=== PATIENT | female | born 1995 | race Caucasian/White ===

== ENCOUNTER 2020-03-27 12:08 | Emergency (ER) | payer BC ==
[2020-03-27] MEDS ORDERED: Sodium Chloride 0.9% 10 ML Syringe FLUSH PRN (12:36)
[2020-03-27] MEDS ORDERED: Iopamidol 612 MG/ML 100 ML Bottle IVPUSH ONE (12:51)
[2020-03-27 13:08] LABS: ANION GAP 13.8 mEq/L (7-13); CHLORIDE,CL 103 mmol/L (98-107); SODIUM,NA 142 mmol/L (136-145)
[2020-03-27] MEDS ORDERED: Ketorolac 30 MG/ML SDV IVPUSH ONE (13:16)
--- NOTE | 2020-03-27 14:23 | CT ---
PROCEDURE INFORMATION: Exam: CT Abdomen And Pelvis With Contrast Exam date and time: 03/27/2020 12:59 PM Age: 24 years old Clinical indication: Abdominal pain; Localized; Right lower quadrant (rlq); Additional info: Rlq pain TECHNIQUE: Imaging protocol: Computed tomography of the abdomen and pelvis with intravenous contrast. Radiation optimization: All CT scans at this facility use at least one of these dose optimization techniques: automated exposure control; mA and/or kV adjustment per patient size (includes targeted exams where dose is matched to clinical indication); or iterative reconstruction. Contrast material: ISOVUE 300; Contrast volume: 75 ml; Contrast route: INTRAVENOUS (IV); COMPARISON: No relevant prior studies available. FINDINGS: Lungs: Unremarkable.No mass or nodule. Liver: Normal. No mass. Gallbladder and bile ducts: Normal. No calcified stones. No ductal dilation. Pancreas: Normal. No ductal dilation. Spleen: Normal. No splenomegaly. Adrenal glands: Normal. No mass. Kidneys and ureters: Normal. No hydronephrosis. Stomach and bowel: Unremarkable. No obstruction. No mucosal thickening. Appendix: No definite evidence of acute appendicitis. Intraperitoneal space: Unremarkable. No free air. Free fluid observed in the dependent pelvis extends to the right paracentral region. Suggestion of 4.3 x 4.0 cm solid mass in the left adnexa. Vasculature: Unremarkable. No abdominal aortic aneurysm. Lymph nodes: Unremarkable. No enlarged lymph nodes. Urinary bladder: Unremarkable as visualized. Reproductive: Unremarkable as visualized. Bones/joints: Unremarkable. No acute fracture. Soft tissues: Unremarkable. IMPRESSION: 1. Possible solid left adnexal mass with free intrapelvic fluid. Sonography recommended for further evaluation. 2. Otherwise unremarkable study.
--- NOTE | 2020-03-27 15:31 | US ---
PROCEDURE INFORMATION: Exam: US Nonobstetric Pelvis; Complete Exam date and time: 03/27/2020 2:52 PM Age: 24 years old Clinical indication: Pelvic pain; Additional info: Solid left adnexal mass, abdominal/pelvic pain TECHNIQUE: Imaging protocol: Transabdominal pelvic nonobstetric ultrasound. Complete exam. Real time ultrasound with image documentation. COMPARISON: CT Abdomen Pelvis w Cont 03/27/2020 12:59 PM FINDINGS: Uterus/cervix: Uterus is normal. Endometrial stripe measures 5.7 mm. Uterus measures 7.9 x 3.8 x 3.6 cm. Right adnexa: Ovary is normal. No mass. Normal blood flow. Small follicular cysts present. Left adnexa: Ovary is normal. No mass. Normal blood flow. Small follicular cyst present. Solid mass in the left adnexa measuring 5.0 x 3.9 x 3.6 cm. Right kidney: Unremarkable Intraperitoneal space: No intraperitoneal fluid. Urinary bladder: Normal. IMPRESSION: 1. Pelvic sonography confirms the presence of a solid mass in the left adnexa, measurements given above. Etiology uncertain. 2. Small bilateral follicular cysts.
--- NOTE | 2020-03-27 15:47 | EDM.PDOC ---
"Scribed by Petty Perkins 03/27/20 3170 for Emmett Jernigan MD ED HPI GENERAL MEDICAL PROBLEM - General Chief Complaint: Abdominal Pain Stated Complaint: STOMACHE PAIN Time Seen by Provider: 03/27/20 12:17 Source of Information: Reports: Patient, RN, RN Notes Reviewed History Limitations: Reports: No Limitations - History of Present Illness INITIAL COMMENTS - FREE TEXT/NARRATIVE: Patient presents to ED by POV with right upper quadrant and left upper quadrant 3 times this week. Today it is in the right lower quadrant. It was of random onset. She has tried heat, Tums and rest. The pain is sharp and stabbing. She has nausea. No change in bowel habits. Her LMP was 2 weeks. It is always crampy/this is different. Patient is sexually active. She denies any urinary symptoms. No vaginal discharge, bleeding or pelvic pain. Onset: Gradual Duration: Intermittent Location: Reports: Abdomen Quality: Reports: Ache, Stabbing Severity: Moderate Improves with: Reports: None Worsens with: Reports: None Associated Symptoms: Reports: No Other Symptoms - Related Data Allergies Allergy/AdvReac Type Severity Reaction Status Date / Time No Known Allergies Allergy Verified 03/27/20 12:36 Home Meds: Home Meds Levonorgestrel/Ethin.estradiol [Falmina-28 Tablet] 1 tab PO DAILY 03/27/20 [History] Past Medical History - Past Surgical History HEENT Surgical History: Reports: Tonsillectomy Social & Family History - Sexual History Sexual History: Reports: Sexually Active, Single Partner ED ROS GENERAL - Review of Systems Review Of Systems: Comprehensive ROS is negative, except as noted in HPI. ED EXAM, GI/ABD - Physical Exam Exam: See Below Exam Limited By: No Limitations General Appearance: Alert, WD/WN, No Apparent Distress Eyes: Bilateral: Normal Appearance Nose: Normal Inspection, Normal Mucosa, No Blood Throat/Mouth: Normal Inspection, Normal Lips, Normal Teeth, Normal Gums, Normal Oropharynx, Normal Voice, No Airway Compromise Head: Atraumatic, Normocephalic Neck: Normal Inspection, Supple, Non-Tender, Full Range of Motion Respiratory/Chest: No Respiratory Distress, Lungs Clear, Normal Breath Sounds, No Accessory Muscle Use, Chest Non-Tender Cardiovascular: Normal Peripheral Pulses, Regular Rate, Rhythm, No Edema GI/Abdominal Exam: Guarding (right lower quadrant), Tender (right lower, right upper worse in the right lower quadrant). No: Distended, Rigid, Rebound (Female) Exam: Deferred Rectal (Female) Exam: Deferred Back Exam: No: CVA Tenderness (L), CVA Tenderness (R) Extremities: Normal Inspection Neurological: Alert, Oriented Psychiatric: Normal Affect Skin Exam: Warm, Dry, No Rash Lymphatic: No Adenopathy Course - Vital Signs Last Recorded V/S: Last Vital Signs Temp 98.4 F 03/27/20 12:33 Pulse 66 03/27/20 12:33 Resp 16 03/27/20 12:33 BP 120/77 03/27/20 12:33 Pulse Ox 100 03/27/20 12:33 - Orders/Labs/Meds Orders: Active Orders 24 hr Category Date Time Status Peripheral IV Care [RC] . DIRECTED Care 03/27/20 12:37 Active CULTURE URINE [RM] Stat Lab 03/27/20 12:18 Received Sodium Chloride 0.9% [Saline Flush] Med 03/27/20 12:36 Active 10 ml FLUSH ASDIRECTED PRN Peripheral IV Insertion Adult [OM.PC] Routine Oth 03/27/20 12:36 Ordered Medication Orders Sodium Chloride (Saline Flush) 10 ml FLUSH ASDIRECTED PRN PRN Reason: Keep Vein Open Last Admin: 03/27/20 12:46 Dose: 10 ml Documented by: GIGI Labs: Laboratory Tests 03/27/20 03/27/20 03/27/20 Range/Units 12:18 12:18 12:45 WBC 9.4 (5.0-10.0) 10^3/uL RBC 4.47 (4.2-5.4) 10^6/uL Hgb 13.5 (12.0-16.0) g/dL Hct 39.6 (37.0-47.0) % MCV 88.6 (80-100) fL MCH 30.2 (27.0-34.0) pg MCHC 34.1 (33.0-35.0) g/dL Plt Count 282 (150-450) 10^3/uL Neut % (Auto) 70.5 (42.2-75.2) % Lymph % (Auto) 20.4 L (20.5-50.1) % Blount % (Auto) 6.8 (2-8) % Eos % (Auto) 1.9 (1.0-3.0) % Baso % (Auto) 0.4 (0.0-1.0) % Sodium (136-145) mmol/L Potassium (3.5-5.1) mmol/L Chloride (98-107) mmol/L Carbon Dioxide (21-32) mmol/L Anion Gap (7-13) mEq/L BUN (7-18) mg/dL Creatinine (0.55-1.02) mg/dL Est Cr Clr Drug Dosing mL/min Estimated GFR (MDRD) BUN/Creatinine Ratio (No establ ref range) Glucose (74-99) mg/dL Calcium (8.5-10.1) mg/dL Total Bilirubin (0.2-1.0) mg/dL AST (15-37) U/L ALT (14-59) U/L Alkaline Phosphatase (46-116) U/L Total Protein (6.4-8.2) g/dL Albumin (3.4-5.0) g/dL Globulin Albumin/Globulin Ratio Urine Color Light yellow (YELLOW) Urine Appearance Slightly cloudy (CLEAR) Urine pH 7.0 (5.0-9.0) Ur Specific Theodore 1.015 (1.005-1.030) Urine Protein Negative (NEGATIVE) Urine Glucose (UA) Negative (NEGATIVE) Urine Ketones Negative (NEGATIVE) Urine Occult Blood Trace-intact H (NEGATIVE) Urine Nitrite Negative (NEGATIVE) Urine Bilirubin Negative (NEGATIVE) Urine Urobilinogen 0.2 (0.2-1.0) mg/dL Ur Leukocyte Esterase Moderate H (NEGATIVE) Urine RBC 5-10 H /HPF Urine WBC 10-20 H (0-5/HPF) /HPF Ur Epithelial Cells Moderate H (NOT SEEN) /HPF Amorphous Sediment Few (NOT SEEN) /HPF Urine Bacteria Few (0-FEW/HPF) /HPF Urine Mucus Few H (NOT SEEN) /LPF Urine HCG, Qual Negative 03/27/20 Range/Units 12:45 WBC (5.0-10.0) 10^3/uL RBC (4.2-5.4) 10^6/uL Hgb (12.0-16.0) g/dL Hct (37.0-47.0) % MCV (80-100) fL MCH (27.0-34.0) pg MCHC (33.0-35.0) g/dL Plt Count (150-450) 10^3/uL Neut % (Auto) (42.2-75.2) % Lymph % (Auto) (20.5-50.1) % Blount % (Auto) (2-8) % Eos % (Auto) (1.0-3.0) % Baso % (Auto) (0.0-1.0) % Sodium 142 (136-145) mmol/L Potassium 3.8 (3.5-5.1) mmol/L Chloride 103 (98-107) mmol/L Carbon Dioxide 29 (21-32) mmol/L Anion Gap 13.8 H (7-13) mEq/L BUN 9 (7-18) mg/dL Creatinine 0.80 (0.55-1.02) mg/dL Est Cr Clr Drug Dosing 99.76 mL/min Estimated GFR (MDRD) > 60 BUN/Creatinine Ratio 11.2 (No establ ref range) Glucose 85 (74-99) mg/dL Calcium 9.0 (8.5-10.1) mg/dL Total Bilirubin 0.5 (0.2-1.0) mg/dL AST 16 (15-37) U/L ALT 16 (14-59) U/L Alkaline Phosphatase 48 (46-116) U/L Total Protein 7.3 (6.4-8.2) g/dL Albumin 4.0 (3.4-5.0) g/dL Globulin 3.3 Albumin/Globulin Ratio 1.2 Urine Color (YELLOW) Urine Appearance (CLEAR) Urine pH (5.0-9.0) Ur Specific Theodore (1.005-1.030) Urine Protein (NEGATIVE) Urine Glucose (UA) (NEGATIVE) Urine Ketones (NEGATIVE) Urine Occult Blood (NEGATIVE) Urine Nitrite (NEGATIVE) Urine Bilirubin (NEGATIVE) Urine Urobilinogen (0.2-1.0) mg/dL Ur Leukocyte Esterase (NEGATIVE) Urine RBC /HPF Urine WBC (0-5/HPF) /HPF Ur Epithelial Cells (NOT SEEN) /HPF Amorphous Sediment (NOT SEEN) /HPF Urine Bacteria (0-FEW/HPF) /HPF Urine Mucus (NOT SEEN) /LPF Urine HCG, Qual Meds: Medications Generic Name Dose Route Start Last Admin Trade Name Arianna PRN Reason Stop Dose Admin Sodium Chloride 10 ml 03/27/20 12:36 03/27/20 12:46 Saline Flush FLUSH 10 ml ASDIRECTED PRN Administration Keep Vein Open Discontinued Medications Generic Name Dose Route Start Last Admin Trade Name Arianna PRN Reason Stop Dose Admin Iopamidol 100 ml 03/27/20 12:51 03/27/20 13:14 Isovue-300 (61%) IVPUSH 03/27/20 12:52 75 ml ONETIME ONE Administration Ketorolac Tromethamine 30 mg 03/27/20 13:16 03/27/20 13:20 Toradol IVPUSH 03/27/20 13:17 30 mg ONETIME ONE Administration - Radiology Interpretation Free Text/Narrative:: [facility] Final Radiology Report Call: [phone] assistance Online chat: [email or web address] Name: HARPREET GARNICA Age: 24Years F Date: 03/27/2020 SSN: -- : 1995 Study: CT ABDOMEN PELVIS W CONT Requesting Physician: EMMETT JERNIGAN Images: [id number] Addl Studies: Provided Clinical History: RLQ pain Contrast: With Contrast Medium: Isovue 300 Contrast Amount: 75 mL Contrast Method: Intravenous (IV) Page 1 of 2 PROCEDURE INFORMATION: Exam: CT Abdomen And Pelvis With Contrast Exam date and time: 03/27/2020 12:59 PM Age: 24 years old Clinical indication: Abdominal pain; Localized; Right lower quadrant (rlq); Additional info: Rlq pain TECHNIQUE: Imaging protocol: Computed tomography of the abdomen and pelvis with intravenous contrast. Radiation optimization: All CT scans at this facility use at least one of these dose optimization techniques: automated exposure control; mA and/or kV adjustment per patient size (includes targeted exams where dose is matched to clinical indication); or iterative reconstruction. Contrast material: ISOVUE 300; Contrast volume: 75 ml; Contrast route: INTRAVENOUS (IV); COMPARISON: No relevant prior studies available. FINDINGS: Lungs: Unremarkable.No mass or nodule. Liver: Normal. No mass. Gallbladder and bile ducts: Normal. No calcified stones. No ductal dilation. Pancreas: Normal. No ductal dilation. Spleen: Normal. No splenomegaly. Adrenal glands: Normal. No mass. Kidneys and ureters: Normal. No hydronephrosis. Stomach and bowel: Unremarkable. No obstruction. No mucosal thickening. Appendix: No definite evidence of acute appendicitis. Intraperitoneal space: Unremarkable. No free air. Free fluid observed in the dependent pelvis extends to the right paracentral region. Suggestion of 4.3 x 4.0 cm solid mass in the left adnexa. HARPREET GARNICA | Final Radiology Report CONFIDENTIALITY STATEMENT This report is intended only for use by the referring physician, and only in accordance with law. If you received this in error, call [phone]. Page 2 of 2 Vasculature: Unremarkable. No abdominal aortic aneurysm. Lymph nodes: Unremarkable. No enlarged lymph nodes. Urinary bladder: Unremarkable as visualized. Reproductive: Unremarkable as visualized. Bones/joints: Unremarkable. No acute fracture. Soft tissues: Unremarkable. IMPRESSION: 1. Possible solid left adnexal mass with free intrapelvic fluid. Sonography recommended for further evaluation. 2. Otherwise unremarkable study. Thank you for allowing us to participate in the care of your patient. Dictated and Authenticated by: Abundio Oglesby MD 03/27/2020 2:22 PM Central Time ([place] & [place]) [facility] Final Radiology Report Call: [phone] assistance Online chat: [email or web address] Name: HARPREET GARNICA Age: 24Years F Date: 03/27/2020 SSN: -- : 1995 Study: US PELVIS NON OB COMP Requesting Physician: EMMETT JERNIGAN Images: 45 Addl Studies: Provided Clinical History: solid left adnexal mass, abdominal/pelvic pain Contrast: Without Contrast Medium: Contrast Amount: Contrast Method: Page 1 of 2 PROCEDURE INFORMATION: Exam: US Nonobstetric Pelvis; Complete Exam date and time: 03/27/2020 2:52 PM Age: 24 years old Clinical indication: Pelvic pain; Additional info: Solid left adnexal mass, abdominal/pelvic pain TECHNIQUE: Imaging protocol: Transabdominal pelvic nonobstetric ultrasound. Complete exam. Real time ultrasound with image documentation. COMPARISON: CT Abdomen Pelvis w Cont 03/27/2020 12:59 PM FINDINGS: Uterus/cervix: Uterus is normal. Endometrial stripe measures 5.7 mm. Uterus measures 7.9 x 3.8 x 3.6 cm. Right adnexa: Ovary is normal. No mass. Normal blood flow. Small follicular cysts present. Left adnexa: Ovary is normal. No mass. Normal blood flow. Small follicular cyst present. Solid mass in the left adnexa measuring 5.0 x 3.9 x 3.6 cm. Right kidney: Unremarkable Intraperitoneal space: No intraperitoneal fluid. Urinary bladder: Normal. IMPRESSION: 1. Pelvic sonography confirms the presence of a solid mass in the left adnexa, measurements given above. Etiology uncertain. 2. Small bilateral follicular cysts. Thank you for allowing us to participate in the care of your patient. HARPREET GARNICA | Final Radiology Report CONFIDENTIALITY STATEMENT This report is intended only for use by the referring physician, and only in accordance with law. If you received this in error, call [phone]. Page 2 of 2 Dictated and Authenticated by: Abundio Oglesby MD 03/27/2020 3:30 PM Central Time ([place] & [place]) - Re-Assessments/Exams Free Text/Narrative Re-Assessment/Exam: 03/27/20 15:41 I saw and evaluated the patient. Discussed with resident and agree with residents findings and plan as documented in the residents note. The resident does not have [employer] access. Departure - Departure Time of Disposition: 15:45 Disposition: Home, Self-Care 01 Condition: Good Clinical Impression: Left ovarian cyst, Ovarian mass, left - Discharge Information *PRESCRIPTION DRUG MONITORING PROGRAM REVIEWED*: Not Applicable *COPY OF PRESCRIPTION DRUG MONITORING REPORT IN PATIENT YENY: Not Applicable Instructions: Ovarian Cyst, [id number] Forms: ED Department Discharge Additional Instructions: RX: Naprosyn 500mg. Tylenol as needed. Follow up with primary care early next week. Sepsis Event Note (ED) - Focused Exam Vital Signs: Vital Signs Temp Pulse Resp BP Pulse Ox 03/27/20 12:33 98.4 F 66 16 120/77 100 - My Orders Last 24 Hours: My Active Orders 03/27/20 12:18 CULTURE URINE [RM] Stat 03/27/20 12:36 Sodium Chloride 0.9% [Saline Flush] 10 ml FLUSH ASDIRECTED PRN Peripheral IV Insertion Adult [OM.PC] Routine 03/27/20 12:37 Peripheral IV Care [RC] . DIRECTED - Assessment/Plan Last 24 Hours: My Active Orders 03/27/20 12:18 CULTURE URINE [RM] Stat 03/27/20 12:36 Sodium Chloride 0.9% [Saline Flush] 10 ml FLUSH ASDIRECTED PRN Peripheral IV Insertion Adult [OM.PC] Routine 03/27/20 12:37 Peripheral IV Care [RC] . DIRECTED I have read and agree with the documentation that has been completed regarding this visit. By signing this record, I attest that the documentation was completed in my physical presence and is an accurate record of the encounter."
== END 2020-03-27 15:52 | disposition home or self-care (01) ==
LOC: DL.ED 12:08
DX: N83.202 Unspecified ovarian cyst, left side (principal)
CPT/HCPCS: 36415; 74177; 76856; 80053; 81001; 81025; 85025; 87086; 96374; 99284; J1885; Q9967

== ENCOUNTER 2020-05-03 10:08 | Emergency (ER) | payer BC ==
--- NOTE | 2020-05-03 10:29 | EDM.PDOC ---
ED HPI GENERAL MEDICAL PROBLEM - General Chief Complaint: [employer] Problem Stated Complaint: CYST ON OVARY STOMACH PAIN Time Seen by Provider: 05/03/20 10:27 Source of Information: Reports: Patient, Old Records, RN, RN Notes Reviewed History Limitations: Reports: No Limitations - History of Present Illness INITIAL COMMENTS - FREE TEXT/NARRATIVE: Pt presents to ER by POV with c/o lower abdominal pain for the past hour. Initially she thought she needed to have a BM, but only voided. While on the toilet the pain became so severe that she became diaphoretic and almost passed out. Pt rates the pain 8-10. She states that she just got over her period yesterday, which was on time and otherwise normal. She did have an [employer] follow up in [place] in March, and had tumor marker and CT scan, then was told that she has a large ovarian cyst, but it is not cancerous. She was told if cyst acting up with pain to go to ER due to risk of torsion. Onset: Today Duration: Constant Location: Reports: Abdomen, Pelvis Quality: Reports: Ache, Same as Previous Episode Severity: Severe Improves with: Reports: None Worsens with: Reports: None Associated Symptoms: Reports: No Other Symptoms Middle Abdomen Pain Score (Numeric/FACES): 8 - Related Data Allergies Allergy/AdvReac Type Severity Reaction Status Date / Time No Known Allergies Allergy Verified 05/03/20 10:27 Home Meds: Home Meds Levonorgestrel/Ethin.estradiol [Falmina-28 Tablet] 1 tab PO DAILY 03/27/20 [History] Past Medical History - Past Health History Medical/Surgical History: Denies Medical/Surgical History [employer] History: Reports: Other (See Below) (Ovarian cyst) Social & Family History - Family History Family Medical History: No Pertinent Family History - Living Situation & Occupation Living situation: Reports: , with Family Occupation: Employed ED ROS GENERAL - Review of Systems Review Of Systems: Comprehensive ROS is negative, except as noted in HPI. ED EXAM, RENAL/ - Physical Exam Exam: See Below Exam Limited By: No Limitations General Appearance: Alert, Anxious, Mild Distress (Due to pain) Nose: Normal Inspection Throat/Mouth: Normal Voice, No Airway Compromise Head: Atraumatic, Normocephalic Neck: Normal Inspection Respiratory/Chest: No Respiratory Distress, Lungs Clear, Normal Breath Sounds, No Accessory Muscle Use, Chest Non-Tender Cardiovascular: Regular Rate, Rhythm GI/Abdominal: Normal Bowel Sounds, Soft, No Distention, Guarding, Tender (Generalized lower abdominal tenderness, acutely tender at LLQ). No: Rigid, Rebound (Female) Exam: Deferred Rectal (Female) Exam: Deferred Back Exam: Normal Inspection, Full Range of Motion. No: CVA Tenderness (L), CVA Tenderness (R) Extremities: Normal Inspection Neurological: Alert, Oriented, No Motor/Sensory Deficits Psychiatric: Anxious Skin Exam: Warm, Dry, Intact, Normal Color, No Rash Course - Vital Signs Last Recorded V/S: Last Vital Signs Temp 97.3 F 05/03/20 10:18 Pulse 60 05/03/20 10:18 Resp 16 05/03/20 10:18 BP 116/58 L 05/03/20 10:18 Pulse Ox 100 05/03/20 10:18 - Orders/Labs/Meds Orders: Active Orders 24 hr Category Date Time Status Peripheral IV Care [RC] . DIRECTED Care 05/03/20 10:32 Active Pelvis Non OB Ltd [US] Stat Exams 05/03/20 10:47 Taken Sodium Chloride 0.9% [Saline Flush] Med 05/03/20 10:32 Active 10 ml FLUSH ASDIRECTED PRN Peripheral IV Insertion Adult [OM.PC] Stat Oth 05/03/20 10:31 Ordered Medication Orders Sodium Chloride (Saline Flush) 10 ml FLUSH ASDIRECTED PRN PRN Reason: Keep Vein Open Last Admin: 05/03/20 10:58 Dose: 10 ml Documented by: [id number] Labs: Laboratory Tests 05/03/20 05/03/20 Range/Units 10:25 10:25 WBC 8.0 (5.0-10.0) 10^3/uL RBC 4.54 (4.2-5.4) 10^6/uL Hgb 13.3 (12.0-16.0) g/dL Hct 39.9 (37.0-47.0) % MCV 87.9 (80-100) fL MCH 29.3 (27.0-34.0) pg MCHC 33.3 (33.0-35.0) g/dL Plt Count 271 (150-450) 10^3/uL Neut % (Auto) 60.0 (42.2-75.2) % Lymph % (Auto) 30.3 (20.5-50.1) % [place] % (Auto) 7.3 (2-8) % Eos % (Auto) 1.9 (1.0-3.0) % Baso % (Auto) 0.5 (0.0-1.0) % HCG, Qual Negative Meds: Medications Generic Name Dose Route Start Last Admin Trade Name Freq PRN Reason Stop Dose Admin Sodium Chloride 10 ml 05/03/20 10:32 05/03/20 10:58 Saline Flush FLUSH 10 ml ASDIRECTED PRN Administration Keep Vein Open Discontinued Medications Generic Name Dose Route Start Last Admin Trade Name Freq PRN Reason Stop Dose Admin Hydromorphone HCl 1 mg 05/03/20 10:33 05/03/20 10:46 Dilaudid IVPUSH 05/03/20 10:34 1 mg ONETIME ONE Administration Sodium Chloride 1,000 mls @ 999 mls/hr 05/03/20 10:32 05/03/20 10:40 Normal Saline IV 05/03/20 11:32 999 mls/hr .BOLUS ONE Administration Ketorolac Tromethamine 30 mg 05/03/20 10:32 05/03/20 10:43 Toradol IVPUSH 05/03/20 10:33 30 mg ONETIME ONE Administration Ondansetron HCl 4 mg 05/03/20 10:32 05/03/20 10:41 Zofran IV 05/03/20 10:33 4 mg ONETIME ONE Administration - Radiology Interpretation Free Text/Narrative:: [facility] Final Radiology Report Call: [phone] assistance Online chat: [email or web address] Name: HARPREET GARNICA Age: 24Years F Date: 05/03/2020 SSN: -- : [id number] Study: US PELVIS NON OB LTD Requesting Physician: EMMETT JOHN Images: 75 Addl Studies: Provided Clinical History: Known large L ovarian cyst w/severe acute pain Contrast: Without Contrast Medium: Contrast Amount: Contrast Method: CONFIDENTIALITY STATEMENT This report is intended only for use by the referring physician, and only in accordance with law. If you received this in error, call [phone]. Page 1 of 1 PROCEDURE INFORMATION: Exam: US Pelvis Limited, Transabdominal Exam date and time: 05/03/2020 11:17 AM Age: 24 years old Clinical indication: Pain and condition or disease; Ovarian conditions; Type of cyst not specified; Pelvic pain; Additional info: Known large L ovarian cyst w/severe acute pain TECHNIQUE: Imaging protocol: Real-time transabdominal pelvic ultrasound with image documentation. Limited exam. COMPARISON: US Pelvis Non OB Comp 03/27/2020 2:52 PM FINDINGS: The uterus is normal in size measuring 7.24 x 5.98 x 6.04 cm. No discrete right adnexal mass identified. The right ovary is normal in size and echotexture. The left ovary is enlarged measuring 4.95 x 3.8 x 4.90 cm. No discrete ovarian mass or cyst identified. Fluid identified in the cul-de-sac. IMPRESSION: 1. Stable enlargement of the left adnexa. Solid mass in the left ovary is not excluded. 2. Free fluid identified in the cul-de-sac. Thank you for allowing us to participate in the care of your patient. Dictated and Authenticated by: Abundio Oglesby MD 05/03/2020 12:13 PM Central Time ([place] & [place]) Departure - Departure Time of Disposition: 11:52 Disposition: Home, Self-Care 01 Condition: Good Clinical Impression: Free fluid in pelvis, Left ovarian enlargement - Discharge Information *PRESCRIPTION DRUG MONITORING PROGRAM REVIEWED*: Not Applicable *COPY OF PRESCRIPTION DRUG MONITORING REPORT IN PATIENT YENY: Not Applicable Instructions: Ovarian Cyst, Pelvic Pain, Female Forms: ED Department Discharge Additional Instructions: Activity as tolerated. Over the counter Ibuprofen 200mg: Take 4 tablets (800mg) by mouth every 8 hours. No more than 2400mg per day. Take with food. Follow up with your [employer] Services [employer] doctor if any further problems. Sepsis Event Note (ED) - Evaluation Sepsis Screening Result: No Definite Risk - Focused Exam Vital Signs: Vital Signs Temp Pulse Resp BP Pulse Ox 05/03/20 10:18 97.3 F 60 16 116/58 L 100 - My Orders Last 24 Hours: My Active Orders 05/03/20 10:31 Peripheral IV Insertion Adult [OM.PC] Stat 05/03/20 10:32 Peripheral IV Care [RC] . DIRECTED Sodium Chloride 0.9% [Saline Flush] 10 ml FLUSH ASDIRECTED PRN 05/03/20 10:47 Pelvis Non OB Ltd [US] Stat - Assessment/Plan Last 24 Hours: My Active Orders 05/03/20 10:31 Peripheral IV Insertion Adult [OM.PC] Stat 05/03/20 10:32 Peripheral IV Care [RC] . DIRECTED Sodium Chloride 0.9% [Saline Flush] 10 ml FLUSH ASDIRECTED PRN 05/03/20 10:47 Pelvis Non OB Ltd [US] Stat
[2020-05-03] MEDS ORDERED: Sodium Chloride 0.9% 10 ML Syringe FLUSH PRN (10:32)
[2020-05-03] MEDS ORDERED: Sodium Chloride 0.9% 1,000 ML IV ONE (10:32)
[2020-05-03] MEDS ORDERED: Ondansetron 4 MG/2 ML SDV IV ONE (10:32)
[2020-05-03] MEDS ORDERED: Ketorolac 30 MG/ML SDV IVPUSH ONE (10:32)
[2020-05-03] MEDS ORDERED: HYDROmorphone 1 MG/ML Syringe IVPUSH ONE (10:33)
--- NOTE | 2020-05-03 12:14 | US ---
PROCEDURE INFORMATION: Exam: US Pelvis Limited, Transabdominal Exam date and time: 05/03/2020 11:17 AM Age: 24 years old Clinical indication: Pain and condition or disease; Ovarian conditions; Type of cyst not specified; Pelvic pain; Additional info: Known large L ovarian cyst w/severe acute pain TECHNIQUE: Imaging protocol: Real-time transabdominal pelvic ultrasound with image documentation. Limited exam. COMPARISON: US Pelvis Non OB Comp 03/27/2020 2:52 PM FINDINGS: The uterus is normal in size measuring 7.24 x 5.98 x 6.04 cm. No discrete right adnexal mass identified. The right ovary is normal in size and echotexture. The left ovary is enlarged measuring 4.95 x 3.8 x 4.90 cm. No discrete ovarian mass or cyst identified. Fluid identified in the cul-de-sac. IMPRESSION: 1. Stable enlargement of the left adnexa. Solid mass in the left ovary is not excluded. 2. Free fluid identified in the cul-de-sac.
== END 2020-05-03 12:38 | disposition home or self-care (01) ==
LOC: DL.ED 10:08
DX: N83.8 Other noninflammatory disorders of ovary, fallopian tube and broad ligament (principal); R18.8 Other ascites
CPT/HCPCS: 36415; 76857; 84703; 85025; 96374; 96375; 99284; J1170; J1885; J2405; J7030